=== PATIENT | female | born 1965 | race Two or more races ===

== ENCOUNTER 2017-05-21 14:24 | Emergency (ER) | payer MEDICARE ==
[~2017-05-21] VITALS: Ht 170.2 cm; Wt 80.7 kg
--- NOTE | 2017-05-21 14:38 | NUR ---
PT AMBULATORY TO ER BED 09 C/O L KNEE PAIN. PT STATES SLIP AND FALL LAST SATURDAY. UNABLE TO RECALL WHAT HAPPEN BUT STATES WAS SEEN AT [facility]. XRAY WAS TAKEN ON HER RT SIDE OF BODY. LT KNEE STARTED HURTING YESTERDAY. PT IS AAO, NAD NOTED. AWAITING MD LEDESMA.
--- NOTE | 2017-05-21 14:40 | NUR ---
DR ANDRADE AT BEDSIDE FOR EVAL.
[2017-05-21] MEDS ORDERED: MORPHINE SULFATE INJ 4 MG/ML DISP.SYRIN ONE (14:51)
[2017-05-21] MEDS ORDERED: ONDANSETRON 4 MG TAB.RAPDIS ONE (14:51)
[2017-05-21] MEDS ORDERED: ONDANSETRON 4 MG TAB.RAPDIS PO ONE (15:00)
[2017-05-21] MEDS ORDERED: MORPHINE SULFATE INJ 2 MG/ML DISP.SYRIN IM ONE (15:00)
--- NOTE | 2017-05-21 15:18 | NUR ---
RADIOLOGY AT BEDSIDE FOR L KNEE XRAY.
--- NOTE | 2017-05-21 15:28 | NUR ---
U/S TECH AT BEDSIDE FOR LLE DUPLEX ULTRASOUND.
--- NOTE | 2017-05-21 16:18 | NUR ---
Gutierrez bandage applied. Patient discharged to home in stable condition. Written and verbal after care instructions given. Patient verbalizes understanding of instruction.
[2017-05-21 16:20] VITALS: BP 125/60
== END 2017-05-21 16:23 | disposition home or self-care (01) ==
LOC: ER 14:43
DX: M25.562 Pain in left knee (principal); W01.0XXA Fall on same level from slipping, tripping and stumbling without subsequent striking against object, initial encounter; Y92.89 Other specified places as the place of occurrence of the external cause; Y93.89 Activity, other specified; Y99.8 Other external cause status
CPT/HCPCS: 73564; 93971; 99284; A4606; J2270; Q0162; Z7610

== ENCOUNTER 2021-11-28 08:53 | Emergency (ER) | payer MEDICARE, OTHER ==
[~2021-11-28] VITALS: Ht 165.1 cm; Wt 86.2 kg
--- NOTE | 2021-11-28 09:15 | NUR ---
JOHN [id number] FROM HOME, C/O ABDOMINAL PAIN UNABLE TO URINATE XLAST NIGHT. PT CHANGED INTO GOWN. BREATHING IS REGULAR AND UNLABORED. AWAITING MD LEDESMA
--- NOTE | 2021-11-28 10:00 | NUR ---
IV LINE IS ESTABLISHED, BLOOD SPECIMEN COLLECTED AND SENT TO THE LAB. THE LINE IS SALINE LOCKED.
[2021-11-28] MEDS ORDERED: IV NS 0.9% 1,000 ML BAG IV ONE (10:30)
[2021-11-28] MEDS ORDERED: KETOROLAC TROMETHAMINE INJ 30 MG/ML VIAL IV ONE (10:30)
[2021-11-28] MEDS ORDERED: ONDANSETRON HCL/PF 4 MG/2 ML VIAL IVP ONE (10:30)
[2021-11-28] MEDS ORDERED: MORPHINE SULFATE INJ 2 MG/ML DISP.SYRIN IV ONE (10:30)
--- NOTE | 2021-11-28 10:39 | NUR ---
SUNG CATH INSERTED, URINE COLLECTED AND SENT TO LAB
[2021-11-28] MEDS ORDERED: KETOROLAC TROMETHAMINE 15 MG/ML VIAL ONE (10:44)
[2021-11-28] MEDS ORDERED: MORPHINE SULFATE INJ 4 MG/ML DISP.SYRIN ONE (10:45)
[2021-11-28] MEDS ORDERED: ONDANSETRON HCL/PF 4 MG/2 ML VIAL ONE (10:45)
[2021-11-28 11:04] LABS: BASOPHILS % (AUTO) 0.1 % (0.0-2.0); HEMATOCRIT 43 % (33-45); HEMOGLOBIN 14.4 g/dL (11.5-14.8); LYMPHOCYTES # (AUTO) 0.9 K/uL (0.8-4.8); LYMPHOCYTES % (AUTO) 5.6 % (20.0-44.0); MEAN CORPUSCULAR HGB CONC 34 g/dl (31.0-36.0); MEAN CORPUSCULAR VOLUME 83 fL (82-100); MONOCYTES # (AUTO) 0.7 K/uL (0.1-1.30); MONOCYTES % (AUTO) 4.3 % (2.0-12.0); NEUTROPHILS # (AUTO) 15.1 K/uL (1.8-8.9); PLATELET COUNT (AUTO) 463 K/uL (150-450); RED BLOOD CELL COUNT(AUTO) 5.17 MIL/uL (4.0-5.2); WHITE BLOOD COUNT (AUTO) 16.8 K/uL (4.3-11.0)
[2021-11-28 11:28] LABS: BILIRUBIN,URINE NEGATIVE (NEGATIVE); COLOR,URINE YELLOW (YELLOW); LEUKOCYTE ESTERASE ,URINE NEGATIVE (NEGATIVE); NITRITE, URINE NEGATIVE (NEGATIVE); PH,URINE 8.5 (5.0-8.0); PROTEIN,URINE 30 mg/dl (NEGATIVE); UGLUCOSE NEGATIVE (NEGATIVE); UROBILINOGEN,URINE 0.2 EU/dL (0.2)
[2021-11-28 11:42] LABS: CALCIUM, SERUM 10.3 mg/dL (8.5-10.1); CREATININE 1.1 mg/dL (0.6-1.3); POTASSIUM 3.8 mmol/L (3.5-5.1)
[2021-11-28 11:49] LABS: ALBUMIN 4.2 g/dL (3.4-5.0); BILIRUBIN,DIRECT 0.1 mg/dL (0.0-0.2); BILIRUBIN,TOTAL 0.3 mg/dL (0.2-1.0); TOTAL PROTEIN, SERUM 9.1 g/dL (6.4-8.2)
--- NOTE | 2021-11-28 13:00 | NUR ---
PT TAKEN FOR CT
--- NOTE | 2021-11-28 13:25 | NUR ---
PT BACK IN ROOM FROM CT
[2021-11-28] MEDS ORDERED: ONDA4TAB5 PO (13:31)
[2021-11-28] MEDS ORDERED: KETO10TA2 PO (13:31)
[2021-11-28] MEDS ORDERED: HYDR-3976 PO (13:31)
[2021-11-28] MEDS ORDERED: TAMS-12 PO (13:31)
--- NOTE | 2021-11-28 13:47 | NUR ---
IV LINE AND SUNG CATH REMOVED
[2021-11-28 13:51] VITALS: BP 135/73
[2021-11-28 14:44] LABS: RBC,URINE 51-80 /HPF (0-2)
[2021-11-28 14:45] LABS: BACTERIA,URINE Few /HPF (None Seen)
[2021-11-28 14:46] LABS: SQUAMOUS EPITHELIAL CELL,UR Few /HPF (None Seen)
[2021-11-28 14:48] LABS: WBC,URINE 0-3 /HPF (0-3)
== END 2021-11-28 13:52 | disposition home or self-care (01) ==
LOC: ER 09:03
DX: N20.1 Calculus of ureter (principal)
CPT/HCPCS: 36415; 74176; 80048; 80076; 81001; 83690; 85025; 87086; 96361; 96374; 96375; 99284; J1885; J2270; J2405; J7030